=== PATIENT | male | born 1955 | race Caucasian/White ===

== ENCOUNTER → 2017-07-23 | Outpatient (CLI) | payer OTHER ==
[~2017-07-23] MED LIST: ALEN70TA43 PO
--- NOTE | 2017-07-23 11:01 | RADIOLOGY IMAGING REPORT ---
FACILITY: [facility] - [place] PATIENT NAME: Dick Conley : 1955 MR: [id number] V: [id number] EXAM DATE: ORDERING PHYSICIAN: SURJIT MCMILLAN TECHNOLOGIST: Location: [facility] Patient: Dick Conley : 1955 Visit/Account:[id number] Date of Sevice: 07/23/2017 DEXA Scan Clinical history: History of osteoporosis. Comparison: DEXA scan from 01/07/2014. LUMBAR SPINE: The bone mineral density (BMD) measured from L1-L4 correlates with a Z-score of -1.6 and a T-score of -2.3 which is osteopenia as defined by the World Health Organization. The corresponding risk of fra cture in the lumbar spine is 4-6 times increased compared with a young adult reference population. T his value has decrease by 1.3 % since the prior study. More than 5% change is considered significant . HIP: Bone mineral density (BMD) measured in the LEFT total hip region correlates with a Z-score -0.9 and a T-score of -1.6 which is osteopenia as defined by the World Health Organization. The corresponding risk of fracture in the hip is 3-4 times increased compared to a young adult reference population. Th is value has increased by 0.3 % since the prior study. More than 5% change is considered significant . T score left femoral neck -2.1 Bone mineral density (BMD) measured in the Femoral Neck region measures 0.795 g/cm?. IMPRESSION: 1. Lumbar spine: Osteopenia. There has been 1.3% decrease in the bone mineral density since the pre vious exam. 2. Left Total Hip: Osteopenia. There has been 0.3% increase in the bone mineral density since the p revious exam. 3. Femoral Neck: Bone Mineral Density is 0.795 g/cm? The next DEXA scan of this patient should include the following sites: L1-L4 and the left hip. FRAX? WHO Fracture Risk Assessment Tool link: <http://www.shef.ac.uk/FRAX/tool.jsp?locationValue=9> PLEASE NOTE: 1) The World Health Organization defines low BMD as follows: T-score Normal > -1 Osteopenia < -1 and > -2.5 Osteoporosis < -2.5 without fractures Established osteoporosis < -2.5 with fractures 2) In general, you may wish to consider: Diagnosis Treatment Follow-up DEXA Normal BMD Prevention 2-3 years Osteopenia Prevention/therapy 1-2 years Osteoporosis Therapy Yearly 3) Fracture risk estimated from the T-score is more accurate for vertebral fractures (often spontane ous) than for hip fractures. Report Dictated By: Latasha Huffman MD at 07/23/2017 10:54 AM Report E-Signed By: Latasha Huffman MD at 07/23/2017 10:55 AM WSN:[email or web address]
== END ==
LOC: RAD 06:49
PROVIDERS: ATTEND Nurse Practitioner Family
DX: Z13.820 Encounter for screening for osteoporosis (principal); M85.89 Other specified disorders of bone density and structure, multiple sites; M81.8 Other osteoporosis without current pathological fracture
CPT/HCPCS: 77080

== ENCOUNTER → 2018-07-04 | Outpatient (CLI) | payer OTHER | LOC: LAB 10:18 | PROVIDERS: ATTEND Nurse Practitioner Family | DX: M85.80 Other specified disorders of bone density and structure, unspecified site (principal) ==

== ENCOUNTER → 2018-07-05 | Outpatient (REF) | payer OTHER | LOC: ZZSENDIN 11:15 | PROVIDERS: ATTEND Nurse Practitioner Family | DX: M85.80 Other specified disorders of bone density and structure, unspecified site (principal) | CPT/HCPCS: 82523 ==

== ENCOUNTER → 2018-10-15 | Outpatient (CLI) | payer OTHER ==
[~2018-10-15] MED LIST changes: +IOPAMIDOL 76% 100 ML INFUS BTL 100 ML ONE
--- NOTE | 2018-10-15 15:16 | RADIOLOGY IMAGING REPORT ---
FACILITY: [facility] PATIENT NAME: Dick Conley : 1955 MR: [id number] V: [id number] EXAM DATE: ORDERING PHYSICIAN: SONDRA LEI TECHNOLOGIST: Location: [facility] [place] Patient: Dcik Conley : 1955 Visit/Account:[id number] Date of Sevice: 10/15/2018 EXAMINATION: CT neck without IV contrast CT neck with IV contrast HISTORY: Enlarged lymph nodes. TECHNIQUE: Axial CT of the neck without and with IV contrast. Sagittal and coronal reformats. One of the following dose optimization techniques was utilized in the performance of this exam: Autom ated exposure control; adjustment of the mA and/or kV according to the patient's size; or use of an i terative reconstruction technique. Specific details can be referenced in the facility's radiology C T exam operational policy. CONTRAST: 75 mL of IV Isovue-370 COMPARISON: None available. FINDINGS: Masses/lesions: None. Airway: Negative. Lymph nodes: Multiple mildly enlarged bilateral submandibular and jugular chain lymph nodes. Reference nodes as follows: 12 x 10 mm right submandibular lymph node (series 6, image 38). 21 x 9 mm right level 2 lymph node (series 6, image 38). 19 x 9 mm left level 3 lymph node (series 6, image 47). Vessels: Negative. Musculoskeletal / Body wall: Degenerative disc disease at C5-C6. Visualized orbits / brain / paranasal sinuses: Rightward nasal septal deviation. Upper chest: Negative. IMPRESSION: 1. Mildly enlarged bilateral submandibular and jugular chain lymph nodes with reference measurements given above. Uncertain etiology. Possible metastasis or lymphoma. 2. Degenerative disc disease at C5-C6. 3. Rightward nasal septal deviation. Report Dictated By: Jeremy Pa MD at 10/15/2018 3:02 PM Report E-Signed By: Jeremy Pa MD at 10/15/2018 3:12 PM WSN:[email or web address]
--- NOTE | 2018-10-15 17:44 | RADIOLOGY IMAGING REPORT ---
[place] [facility] [place] NAME: Dick Conley : 1955 MR: [id number] V: [id number] EXAM DATE: ORDERING PHYSICIAN: SONDRA LEI TECHNOLOGIST: Location: [facility] [place] Patient: Dick Conley : 1955 Visit/Account:[id number] Date of Sevice: 10/15/2018 EXAMINATION: CT Chest With Contrast CT Abdomen With Contrast CT Pelvis With Contrast 10/15/2018 11:56 AM HISTORY: Swollen lymph nodes TECHNIQUE: Spiral scan was obtained through the chest, abdomen and pelvis during injection of nonio gino iodinated intravenous contrast. Contrast: 75 mL of IV Isovue 370. One of the following dose optimization techniques was utilized in the performance of this exam: Autom ated exposure control; adjustment of the mA and/or kV according to the patient's size; or use of an i terative reconstruction technique. Specific details can be referenced in the facility's radiology C T exam operational policy. COMPARISON STUDIES: Separate CT neck today. Chest x-ray 12/16/2012.. FINDINGS: CHEST: Lungs / pleura: Calcified pleural-based granuloma in the anterior left upper lobe (series 4 image 35) . Small calcified granuloma posterior left lower lobe (image 90). Benign-appearing perifissural nodul arity or thickening along the fissure on the left (image 42, coronal image 66). Mediastinum / omar: negative Heart / pericardium: Small amount of fluid in superior pericardial recesses. Vessels: negative Musculoskeletal / Body wall: Hemangioma in the T5 vertebral body. Mild wedging at T8, stable. Lymph node assessment: Axillary lymph nodes. Adjacent 1.2 x 1.1 cm and 1.5 x 1.0 cm right axillary ly mph nodes (series 2 image 24), with additional mildly prominent axillary nodes on that side. Left axi llary lymph nodes are also prominent measuring up to 1.9 x 1.2 cm (image 23). Small nonspecific media stinal and hilar lymph nodes. Granulomatous calcifications in the left hilum. Lower neck: See separate neck CT. ABDOMEN AND PELVIS: Liver / biliary: Well-circumscribed cysts in both lobes. Granulomatous calcification. Pancreas: negative Spleen: Spleen is not enlarged. Granulomatous calcification present. Incidental anterior accessory sp lenule. Adrenal glands: negative Kidneys / retroperitoneum: Small benign-appearing cortical cysts. Pelvic structures: Prostate is not substantially enlarged. Bladder wall is not thickened. Bowel / peritoneum / mesenteries: negative Vessels: negative Musculoskeletal / Body wall: Mild degenerative changes in the spine. Lymph node assessment: Mesenteric lymph nodes measure up to 1.0 x 0.8 cm in the left mid abdomen (annabelle ge 133). Retroperitoneal lymph nodes are bit numerous although not clearly pathologically enlarged, l argest left periaortic lymph node 1.0 x 0.7 cm (image 149). Iliac and inguinal lymph nodes are also a bit numerous, with the largest right inguinal lymph node 1.2 x 0.7 cm (image 225) with the largest o n the left 1.1 x 0.7 cm on that same section. IMPRESSION: 1. Numerous mildly prominent lymph nodes throughout the chest, abdomen, and pelvis with representativ e measurements above. 2. No other significant acute finding. Report Dictated By: Marcello Azevedo MD at 10/15/2018 5:29 PM Report E-Signed By: Marcello Azevedo MD at 10/15/2018 5:41 PM WSN:[id number]
== END ==
LOC: CT 00:43
PROVIDERS: ATTEND Internal Medicine Hematology
DX: D72.829 Elevated white blood cell count, unspecified (principal); R59.0 Localized enlarged lymph nodes
CPT/HCPCS: 70492; 71260; 74177; Q9967

== ENCOUNTER 2018-11-07 12:27 | Outpatient (RCR) | payer OTHER ==
[2018-10-03 11:25] VITALS: BP 103/66
--- NOTE | 2018-10-03 19:27 | ONCOLOGY CONSULTATION ---
EVENT DATE: October 03, 2018 REFERRING PHYSICIAN NEREIDA Kim REASON FOR CONSULTATION Evaluation and management of lymphadenopathy of the neck and lymphocytosis. HEMATOLOGY/ONCOLOGY HISTORY Patient is a 63-year-old male who started to notice palpable lymph nodes in his neck since the beginning of this winter, which are nearly stable in size. Patient has been seen by Liyah Fernández, who requested a CBC, which was done through the [facility], and the CBC showed white blood count of 13,000, platelet count was normal at 211,000, hemoglobin was normal at 15.5, hematocrit normal at 43.2, MCV was normal at 85. Differential white count showed absolute neutrophil count of 4000, which is normal. Absolute lymphocytic count was 8500, which is high, and patient has documented absolute lymphocytosis since June 28, 2016. At that time, the absolute lymphocytic count was 4.7. On June 20, 2017, it was 4.2. On the June, it was 7.8, and currently on the 28 of August, it was 8.5. Patient denies any B symptoms. PAST MEDICAL HISTORY 1. Childhood epilepsy. 2. Osteopenia/osteoporosis. 3. Factor V Leiden mutation, but did not have any history of venous thromboembolus. PAST SURGICAL HISTORY Insignificant. FAMILY HISTORY Father with lung cancer at age of 95. Brother had factor V Leiden mutation with multiple thrombosis and stroke. Mother had strokes. Another brother had strokes. SOCIAL HISTORY Patient is , but he is living currently with his ex- and a significant other. He works for the [employer]. He is a never smoker. He rarely drinks. Denies any abuse of illicit drugs. CURRENT MEDICATIONS Vitamin D and calcium supplement. ALLERGIES No known drug allergies. REVIEW OF SYSTEMS CONSTITUTIONAL: No appetite or weight change. No fever, chills, or sweating. No recent infection. HEENT: Ears: No tinnitus or hearing problem. Nose: No nasal discharge or epistaxis. Throat: No sore throat or mouth ulcers. Eyes: No diplopia or visual changes. RESPIRATORY: No shortness of breath. No cough, expectoration, or hemoptysis. CARDIOVASCULAR: No chest pain, orthopnea, or paroxysmal nocturnal dyspnea (PND). No edema. No palpitations. GASTROINTESTINAL: No nausea or vomiting. No diarrhea or constipation. No change in bowel movements. No heartburn or swallowing difficulties. No abdominal pain. No jaundice. No hematemesis, melena, or rectal bleeding. GENITOURINARY: No hematuria or dysuria. MUSCULOSKELETAL: No pain in the muscles, joints, or bones. NEUROLOGIC: No tingling or numbness in the hands or feet. No headaches or convulsions. HEMATOLOGIC/LYMPHATIC: No bleeding or easy bruising. No weakness or fatigue. No enlarged lymph nodes. SKIN: No skin rash or lumps. PSYCHIATRIC: No anxiety or depression. PHYSICAL EXAMINATION GENERAL: Looks stable. Well developed, well nourished, and in no acute distress. VITAL SIGNS: Blood pressure 103/66, pulse 77 per minute, respirations 16 per minute, temperature 98.2, pulse ox 95% on room air. HEENT: Head: Atraumatic. No sinus tenderness to palpation. Eyes: No icterus or conjunctivitis. Mouth and Throat: No oral thrush or mucositis. NECK: Supple. There are palpable small lymph nodes, firm and rubbery in consistency present in the posterior triangle and in the anterior triangle. LUNGS: Clear to auscultation and percussion bilaterally. HEART: Regular rate and rhythm. No gallops, murmurs, clicks, or rubs. ABDOMEN: Soft and lax. No tenderness. No hepatosplenomegaly. No masses. EXTREMITIES: No cyanosis, clubbing, or edema. LYMPHATICS: No peripheral lymphadenopathy. NEUROLOGIC: Conscious, alert, and oriented times three. No focal motor or sensory deficits. PSYCHIATRIC: Mood and affect appear normal. SKIN: No skin rash, bruise, or purpuric eruption. ASSESSMENT Lymphocytosis with neck lymphadenopathy, highly suggestive of an underlying lymphoproliferative disorder. His current absolute lymphocytic count is 8500 with some shotty lymph nodes in the neck bilaterally. This actually could be an underlying lymphoproliferative disorder like lymphoma or chronic lymphocytic leukemia. I am planning to do a CBC and flow cytometry of the peripheral blood and then planning also to get CT chest, abdomen, pelvis, and neck to study if there is any intra-abdominal or intra-thoracic adenopathy beside the neck adenopathy. Based on the result, if the patient will have chronic lymphocytic leukemia, I do not think he will be a candidate for treatment right now, but we are going to check his blood for FISH for chronic lymphocytic leukemia to know the prognosis about his chronic lymphocytic leukemia, but if he will have a lymphoma, then after the CAT scans, we will have a bone marrow aspiration biopsy for staging, and further management will be decided after that. I explained that to the patient, and the patient is agreeable with the plan of management. PLAN 1. CBC. 2. Peripheral blood for flow cytometry. 3. CT neck. 4. CT chest, abdomen, and pelvis with IV and oral contrast. 5. Patient to return after the above for further evaluation and management. 6. Patient to contact us for any new concerns or complaints. MTDD
[2018-10-15 12:49] LABS: PLATELET COUNT, AUTOMATED 193 K/uL (150-450)
[2018-10-23 11:05] VITALS: BP 104/65
--- NOTE | 2018-10-23 12:24 | [facility] ONCOLOGY NOTE ---
EVENT DATE: October 23, 2018 DIAGNOSIS Chronic lymphocytic leukemia, B-cell type. CHIEF COMPLAINT Patient is here today for followup of his chronic lymphocytic leukemia. HEMATOLOGY/ONCOLOGY HISTORY Patient is a 63-year-old male who started to notice palpable lymph nodes in his neck since the beginning of this winter, which are nearly stable in size. Patient has been seen by Liyah Fernández, who requested a CBC, which was done through the [facility], and the CBC showed white blood count of 13,000, platelet count was normal at 211,000, hemoglobin was normal at 15.5, hematocrit normal at 43.2, MCV was normal at 85. Differential white count showed absolute neutrophil count of 4000, which is normal. Absolute lymphocytic count was 8500, which is high, and patient has documented absolute lymphocytosis since June 28, 2016. At that time, the absolute lymphocytic count was 4.7. On June 20, 2017, it was 4.2. On the June, it was 7.8, and currently on the 28 of August, it was 8.5. Patient denies any B symptoms. Repeat CBC showed white count 15.3, hemoglobin 16, platelet count 193,000. Absolute lymphocytic count was 7.95. CT chest, abdomen and pelvis on October 15, 2018 showed numerous mildly prominent lymph nodes throughout the chest, abdomen and pelvis, the mesenteric lymph node up to 1 cm, retroperitoneal lymph node up to 1 cm, iliac/inguinal lymph node, the largest and right inguinal lymph node was 1.2 cm and the left inguinal lymph node was 1.1 cm. Flow cytometry of the peripheral blood came back positive for chronic lymphocytic leukemia/small lymphocytic lymphoma. HISTORY OF PRESENT ILLNESS Patient is here today for followup of his chronic lymphocytic leukemia. He is doing very well currently except for occasional epistaxis. Denies any constitutional symptoms or B-symptoms. PAST MEDICAL HISTORY 1. Childhood epilepsy. 2. Osteopenia/osteoporosis. 3. Factor V Leiden mutation, but did not have any history of venous thromboembolus. PAST SURGICAL HISTORY Insignificant. FAMILY HISTORY Father with lung cancer at age of 95. Brother had factor V Leiden mutation with multiple thrombosis and stroke. Mother had strokes. Another brother had strokes. SOCIAL HISTORY Patient is , but he is living currently with his ex- and a significant other. He works for the [employer]. He is a never smoker. He rarely drinks. Denies any abuse of illicit drugs. CURRENT MEDICATIONS Vitamin D and calcium supplement. ALLERGIES No known drug allergies. REVIEW OF SYSTEMS CONSTITUTIONAL: No appetite or weight change. No fever, chills, or sweating. No recent infection. HEENT: Ears: No tinnitus or hearing problem. Nose: He has occasional epistaxis. Throat: No sore throat or mouth ulcers. Eyes: No diplopia or visual changes. RESPIRATORY: No shortness of breath. No cough, expectoration, or hemoptysis. CARDIOVASCULAR: No chest pain, orthopnea, or paroxysmal nocturnal dyspnea (PND). No edema. No palpitations. GASTROINTESTINAL: No nausea or vomiting. No diarrhea or constipation. No change in bowel movements. No heartburn or swallowing difficulties. No abdominal pain. No jaundice. No hematemesis, melena, or rectal bleeding. GENITOURINARY: No hematuria or dysuria. MUSCULOSKELETAL: No pain in the muscles, joints, or bones. NEUROLOGIC: No tingling or numbness in the hands or feet. No headaches or convulsions. HEMATOLOGIC/LYMPHATIC: No bleeding or easy bruising. No weakness or fatigue. No enlarged lymph nodes. SKIN: No skin rash or lumps. PSYCHIATRIC: No anxiety or depression. PHYSICAL EXAMINATION GENERAL: Looks stable. Well developed, well nourished, and in no acute distress. VITAL SIGNS: Blood pressure 104/65, pulse 85 per minute, respirations 16 per minute, temperature 98.3, pulse ox 94% on room air. HEENT: Head: Atraumatic. No sinus tenderness to palpation. Eyes: No icterus or conjunctivitis. Mouth and Throat: No oral thrush or mucositis. NECK: Supple. There are palpable small lymph nodes, firm and rubbery in consistency present in the posterior triangle and in the anterior triangle of the neck. LUNGS: Clear to auscultation and percussion bilaterally. HEART: Regular rate and rhythm. No gallops, murmurs, clicks, or rubs. ABDOMEN: Soft and lax. No tenderness. No hepatosplenomegaly. No masses. EXTREMITIES: No cyanosis, clubbing, or edema. LYMPHATICS: No peripheral lymphadenopathy. NEUROLOGIC: Conscious, alert, and oriented times three. No focal motor or sensory deficits. PSYCHIATRIC: Mood and affect appear normal. SKIN: No skin rash, bruise, or purpuric eruption. DIAGNOSTIC DATA CBC showed white count 15.3, hemoglobin 16, hematocrit 48.2, platelet count 193,000. Absolute lymphocytic count 7.95. CT chest, abdomen and pelvis on October 15, 2018, showed numerous mildly prominent lymph nodes throughout the chest, abdomen and pelvis and the mesenteric lymph node, the largest is up 1 cm, retroperitoneal lymph node the largest up 1 cm, right inguinal lymph node the largest up to 1.2 cm and the largest left inguinal lymph node is up to 1.1 cm. Flow cytometry of the peripheral blood was positive for B-cell lymphoproliferative disorder, consistent with CLL/SLL. ASSESSMENT Chronic lymphocytic leukemia/small lymphocytic lymphoma. Current absolute lymphocytic count is 7.95, which is stable. CT chest, abdomen and pelvis showed lymph nodes all over but they do not reach pathological size. All of them are less than 1.5 cm in size. Flow cytometry of the peripheral blood came back positive for chronic lymphocytic leukemia/small lymphocytic lymphoma. I am planning to proceed with FISH for chronic lymphocytic leukemia to know the prognosis and also to decide about further management in the future, if the patient will need treatment. I spent a long time explaining those issues and he is agreeable with the plan of management. I will see him after we get the results of the FISH and after that we will start followup every six months in the future. PLAN 1. FISH for CLL. 2. Patient to return after the above for further evaluation and management. 3. Patient to contact us for any new concerns or complaints. ASIF
[~2018-11-07] VITALS: Ht 181.2 cm; Wt 68.5 kg
[~2018-11-07 12:27] MED LIST changes: -IOPAMIDOL 76% 100 ML INFUS BTL 100 ML ONE
[2018-11-07 12:34] VITALS: BP 108/72
--- NOTE | 2018-11-08 06:30 | [facility] ONCOLOGY NOTE ---
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 CHIEF COMPLAINT Patient is here today for followup of his chronic lymphocytic leukemia. HEMATOLOGY/ONCOLOGY HISTORY Patient is a 63-year-old male who started to notice palpable lymph nodes in his neck since the beginning of this winter, which are nearly stable in size. Patient has been seen by Liyah Fernández, who requested a CBC, which was done through the [facility], and the CBC showed white blood count of 13,000, platelet count was normal at 211,000, hemoglobin was normal at 15.5, hematocrit normal at 43.2, MCV was normal at 85. Differential white count showed absolute neutrophil count of 4000, which is normal. Absolute lymphocytic count was 8500, which is high, and patient has documented absolute lymphocytosis since June 28, 2016. At that time, the absolute lymphocytic count was 4.7. On June 20, 2017, it was 4.2. On the June, it was 7.8, and currently on the 28 of August, it was 8.5. Patient denies any B symptoms. Repeat CBC showed white count 15.3, hemoglobin 16, platelet count 193,000. Absolute lymphocytic count was 7.95. CT chest, abdomen and pelvis on October 15, 2018 showed numerous mildly prominent lymph nodes throughout the chest, abdomen and pelvis, the mesenteric lymph node up to 1 cm, retroperitoneal lymph node up to 1 cm, iliac/inguinal lymph node, the largest and right inguinal lymph node was 1.2 cm and the left inguinal lymph node was 1.1 cm. Flow cytometry of the peripheral blood came back positive for chronic lymphocytic leukemia/small lymphocytic lymphoma. FISH for CLL came back positive for trisomy 12 but it came as intermediate risk. HISTORY OF PRESENT ILLNESS Patient is here today for followup of his chronic lymphocytic leukemia. He is doing fine currently and totally asymptomatic. No B symptoms. PAST MEDICAL HISTORY 1. Childhood epilepsy. 2. Osteopenia/osteoporosis. 3. Factor V Leiden mutation, but did not have any history of venous thromboembolus. PAST SURGICAL HISTORY Insignificant. FAMILY HISTORY Father with lung cancer at age of 95. Brother had factor V Leiden mutation with multiple thrombosis and stroke. Mother had strokes. Another brother had strokes. SOCIAL HISTORY Patient is , but he is living currently with his ex- and a significant other. He works for the [employer]. He is a never smoker. He rarely drinks. Denies any abuse of illicit drugs. CURRENT MEDICATIONS Vitamin D and calcium supplement. ALLERGIES No known drug allergies. REVIEW OF SYSTEMS CONSTITUTIONAL: No appetite or weight change. No fever, chills, or sweating. No recent infection. HEENT: Ears: No tinnitus or hearing problem. Nose: He has occasional epistaxis. Throat: No sore throat or mouth ulcers. Eyes: No diplopia or visual changes. RESPIRATORY: No shortness of breath. No cough, expectoration, or hemoptysis. CARDIOVASCULAR: No chest pain, orthopnea, or paroxysmal nocturnal dyspnea (PND). No edema. No palpitations. GASTROINTESTINAL: No nausea or vomiting. No diarrhea or constipation. No change in bowel movements. No heartburn or swallowing difficulties. No abdominal pain. No jaundice. No hematemesis, melena, or rectal bleeding. GENITOURINARY: No hematuria or dysuria. MUSCULOSKELETAL: No pain in the muscles, joints, or bones. NEUROLOGIC: No tingling or numbness in the hands or feet. No headaches or convulsions. HEMATOLOGIC/LYMPHATIC: No bleeding or easy bruising. No weakness or fatigue. No enlarged lymph nodes. SKIN: No skin rash or lumps. PSYCHIATRIC: No anxiety or depression. PHYSICAL EXAMINATION GENERAL: Looks stable. Well developed, well nourished, and in no acute distress. VITAL SIGNS: Blood pressure 108/72, pulse 64 per minute, respirations 16 per minute, temperature 97.5, pulse ox 95% on room air. HEENT: Head: Atraumatic. No sinus tenderness to palpation. Eyes: No icterus or conjunctivitis. Mouth and Throat: No oral thrush or mucositis. NECK: Supple. There are palpable small lymph nodes, firm and rubbery in consistency present in the posterior triangle and in the anterior triangle of the neck. LUNGS: Clear to auscultation and percussion bilaterally. HEART: Regular rate and rhythm. No gallops, murmurs, clicks, or rubs. ABDOMEN: Soft and lax. No tenderness. No hepatosplenomegaly. No masses. EXTREMITIES: No cyanosis, clubbing, or edema. LYMPHATICS: No peripheral lymphadenopathy. NEUROLOGIC: Conscious, alert, and oriented times three. No focal motor or sensory deficits. PSYCHIATRIC: Mood and affect appear normal. SKIN: No skin rash, bruise, or purpuric eruption. DIAGNOSTIC DATA FISH for CLL came back positive for trisomy 12 consistent with intermediate risk CLL. ASSESSMENT Chronic lymphocytic leukemia/small lymphocytic lymphoma. Current absolute lymphocytic count is 7,950. CT chest, abdomen and pelvis showed lymph nodes all over but they do not reach the pathological size. All of the lymph nodes are less than 1.5 cm in size. Flow cytometry of the peripheral blood came back positive for chronic lymphocytic leukemia/small lymphocytic lymphoma. FISH for CLL came back positive for trisomy 12, putting the patient as intermediate risk CLL. At the moment, there is no indication of treatment of his CLL. I am planning to see him again in six months with CBC, chem panel, LDH and uric acid. PLAN 1. Continue followup. 2. Patient to return in six months with CBC, chem panel, LDH, uric acid. 3. Patient to contact us for any new concerns or complaints. TOREYD
== END 2018-11-17 11:42 | disposition home or self-care (01) ==
LOC: ONC 12:27
PROVIDERS: ATTEND Internal Medicine Hematology
DX: D72.820 Lymphocytosis (symptomatic) (principal); R59.0 Localized enlarged lymph nodes
CPT/HCPCS: 36415; 85025; 88184; 88185; 88189; 88271; 88275; 88291; 99202; 99212